=== PATIENT | male | born 1970 | race Caucasian/White ===

== ENCOUNTER → 2021-04-07 10:23 | Outpatient (BNVA) | payer OTHER, SELFPAY | PROVIDERS: Family Provider Nurse Practitioner; PCP Family Medicine; Visit Provider Nurse Practitioner Family | DX: J06.9 Acute upper respiratory infection, unspecified (principal); Z20.822 Contact with and (suspected) exposure to COVID-19 | CPT/HCPCS: 87635 ==

== ENCOUNTER 2021-12-18 08:28 | Day surgery (SDC) | payer OTHER, SELFPAY ==
[2021-12-16 12:19] VITALS: BMI 35.9
[2021-12-18 08:51] VITALS: BP 123/94; PULSE 74; RESP 16; TEMP 36.5; O2SAT 96
[2021-12-18] MEDS: sodium chloride 0.9% 1,000 ML 30 ML IV (08:58)
--- NOTE | 2021-12-18 08:59 | W.PM.OPSFHP ---
Same Day Surgery H&P Indication for Procedure/HPI DATE OF PROCEDURE: December 18, 2021 CHIEF COMPLAINT/INDICATIONFOR SURGICAL PROCEDURE: Screening colonoscopy PREOP DIAGNOSIS: Screening colonoscopy PLANNED PROCEDURE: Operation Date: 12/18/21 10:00 Proposed Procedures p Colonoscopy 18944/z12.11(Not Applicable) - Carmelo Sainz MD This is a pleasant 51 years old gentleman referred to me for screening colonoscopy. Patient denies any bleeding per rectum or history of colon cancer or nonintentional weight loss. Never had a colonoscopy before. ROS All systems have been reviewed all systems have been reviewed negative except as per the above or per problem list Medications/Allergies* Home Medications Medication Instructions Recorded Confirmed Type atorvastatin 20 mg tablet 20 mg PO DAILY 12/16/21 12/18/21 History empagliflozin 10 mg tablet 500 mg PO DAILY 12/16/21 12/18/21 History (Jardiance) glipizide 10 mg tablet, extended 10 mg PO DAILY 12/16/21 12/18/21 History release 24 hr lisinopril 10 1 tab PO DAILY 12/16/21 12/18/21 History mg-hydrochlorothiazide 12.5 mg tablet metformin 500 mg tablet,extended 1,000 mg PO DAILY 12/16/21 12/18/21 History release 24 hr Allergies/Adverse Reactions Allergy/AdvReac Type Severity Reaction Status Date / Time aspirin Allergy anaphalxis Verified 12/18/21 09:00 Pertinent Exam Findings alert, oriented x 3, clear to auscultation bilaterally, regular rate & rhythm and procedure specific exam findings (Abdominal exam nontender nondistended soft) Recommendations Surgery/Procedure today (Screening colonoscopy ) Other Plans: Plan of care; After thorough history and physical examination and reviewing the chart, plan to perform screening colonoscopy. I discussed with the patient in details the risks,benefits,alternatives and indications.The risk of aspiration, bleeding, soft tissue injury, perforation of the colon and other potential concomitant complications were explained to the patient in details,also the potential need for Laproscoy/Laparotomy to repair any related complications including but not limited to colectomy and or Closotomy.The patient understood this well and did agree to proceed. Rationale was carefully and clearly discussed with the patient.Appropriate informed consent have been reviewed and signed All questions have been answered and all concerns have been addressed to patient's satisfaction. 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
--- NOTE | 2021-12-18 09:39 | ANES.PREANE2 ---
Pre-Anesthetic Assessment Height/Weight: Height 1.83 m Weight 120.202 kg Temp Pulse Resp BP Pulse Ox 97.7 F 74 16 123/94 96 12/18/21 08:51 12/18/21 08:51 12/18/21 08:51 12/18/21 08:51 12/18/21 08:51 Preop Diagnosis: Screening colonoscopy Operation Date: 12/18/21 10:00 Proposed Procedures p Colonoscopy 62590/z12.11(Not Applicable) - Carmelo Sainz MD Familial anesthetic complications: None Was Beta Dave taken within 24 hours: N/A Was Clonidine taken within 24 hours: N/A Last intake: Intake Last Liquid Date 12/17/21 Last Liquid Time 20:00 Last Solid Date 12/16/21 Last Solid Time 19:00 Social No alcohol and No tobacco Exam alert, oriented x 3, clear to auscultation bilaterally and regular rate & rhythm Airway Submandibular: within normal limits Cervical ROM: within normal limits Mallampati: Class II Dentition: full CV/HEM Hypertension Metabolic Diabetes Mellitus, Hyperlipidemia and Morbid Obesity Anesthetic Plan ASA status: 2 Anesthesia: MAC Medications/Allergies Home Medications Medication Instructions Recorded Confirmed Last Taken Type atorvastatin 20 mg tablet 20 mg PO DAILY 12/16/21 12/18/21 12/17/21 History empagliflozin 10 mg tablet 500 mg PO DAILY 12/16/21 12/18/21 12/17/21 History (Jardiance) glipizide 10 mg tablet, extended 10 mg PO DAILY 12/16/21 12/18/21 12/17/21 History release 24 hr lisinopril 10 1 tab PO DAILY 12/16/21 12/18/21 12/17/21 History mg-hydrochlorothiazide 12.5 mg tablet metformin 500 mg tablet,extended 1,000 mg PO DAILY 12/16/21 12/18/21 12/17/21 History release 24 hr Allergies Allergy/AdvReac Type Severity Reaction Status Date / Time aspirin Allergy anaphalxis Verified 12/18/21 09:00 Current Medications Generic Name Dose Route Start Last Admin Trade Name Freq PRN Reason Stop Dose Admin Sodium Chloride 1,000 mls @ 30 mls/hr 12/18/21 08:45 12/18/21 08:58 Sodium Chloride 0.9% IV 12/19/21 08:44 30 mls/hr .Q24H DAV Administration Data Anesthesia Cardiac Studies: No Data to Display
[2021-12-18 10:30] VITALS: BP 112/72; PULSE 67; RESP 18; TEMP 36.6; O2SAT 96
[2021-12-18 10:37] VITALS: BP 129/82; PULSE 76; RESP 18; TEMP 36.6; O2SAT 96
--- NOTE | 2021-12-18 14:51 | ANE.PACU2 ---
Inpatient post-anesthesia follow up: Airway intact: Yes Vital signs: Temperature 97.8 F Pulse Rate 76 Respiratory Rate 18 Blood Pressure 129/82 Pulse Oximetry 96 Oxygen Delivery Me thod Room Air Oxygen Flow Rate Fraction of Inspir ed Oxygen Hydration adequate: Yes Nausea and vomiting: No Pain level: 1 Mental status: Baseline
== END 2021-12-18 10:47 | disposition home or self-care (01) ==
PROVIDERS: PCP Family Medicine; Visit Provider Surgery
PROC: 0DJD8ZZ Inspection of Lower Intestinal Tract, Via Natural or Artificial Opening Endoscopic (ICD-10-PCS; CPT 45378; principal; 2021-12-18 10:00)
DX: Z12.11 Encounter for screening for malignant neoplasm of colon (principal); I10 Essential (primary) hypertension; E11.9 Type 2 diabetes mellitus without complications; E78.5 Hyperlipidemia, unspecified; E66.01 Morbid (severe) obesity due to excess calories; Z68.35 Body mass index [BMI] 35.0-35.9, adult; Z79.84 Long term (current) use of oral hypoglycemic drugs
CPT/HCPCS: 45378; J2704; J7030